=== PATIENT | female | born 1945 | race Caucasian/White ===

== ENCOUNTER 2016-10-02 17:30 | Observation (INO) ==
--- NOTE | 2016-10-02 18:01 | Emergency Department Note ---
Disposition Clinical Impression: Chest pain Qualifiers: Chest pain type: unspecified Qualified Code(s): R07.9 - Chest pain, unspecified Disposition: Admitted As Inpatient Condition: Undetermined Referrals: NO,PCP [Non-Partnered Physician] - Forms: ED Satisfaction Letter Time of Disposition: 18:54 Chest Pain HPI - General Chief Complaint: ED Chest Pain Stated Complaint: chest pain Time Seen by Provider: 10/02/16 17:40 Source: patient, family Mode of arrival: ambulatory Limitations: no limitations Vital Signs Reviewed: Yes Nursing Notes Reviewed: Yes - History of Present Illness HPI Narrative: 71-year-old female with history of SD 4 years ago with 2 stents placed arrives here to the emergency department complaining of intermittent chest pain that has been ongoing for the past 3 hours which is identical to her previous SD. The patient feels tired at this time and was diaphoretic as she says. The patient does have risk factors of smoking, previous SD, hypertension, hyperlipidemia. The patient states her pain is currently gone at this time. The patient denies any currently. She appears tired at this time without any acute complaints. Pt complaint: chest pain Duration: intermittent, now resolved Onset: during rest, during exertion Severity scale (1-10): 0 Quality: tightness Pain Radiation: back, neck, jaw/teeth Improves with: nothing Worsens with: nothing Associated symptoms: Reports: diaphoresis, dyspnea Treatments prior to arrival chest pain: none - Related Data On Oral Contraceptives: No Home Medications Medication Instructions Recorded Confirmed Albuterol Sulfate [Proair Hfa] 2 puff IH Q6H PRN 07/25/15 02/28/16 Clopidogrel [Plavix] 75 mg PO DAILY 07/25/15 02/28/16 Ezetimibe [Zetia] 10 mg PO DAILY 07/25/15 02/28/16 Fluticasone/Salmeterol [Advair 1 puff IH BID 07/25/15 02/28/16 250-50 Diskus] Levothyroxine Sodium [Tirosint] 88 mcg PO QAM 07/25/15 02/28/16 Metoprolol [Lopressor] 12.5 mg PO BID 07/25/15 02/28/16 Simvastatin [Zocor] 20 mg PO HS 07/25/15 02/28/16 Tolterodine LA (24 HR) [Detrol LA] 4 mg PO DAILY 07/25/15 02/28/16 Ferrous Sulfate 325 mg PO DAILY 10/22/15 02/28/16 Previous Rx's Medication Instructions Recorded levoFLOXacin [Levaquin] 500 mg PO DAILY #5 tablet 02/29/16 predniSONE [PredniSONE] 50 mg PO DAILY 5 Days 02/29/16 Allergies Allergy/AdvReac Type Severity Reaction Status Date / Time aspirin [ASA] Allergy Hives Verified 02/28/16 20:14 Iazytqf-Rfu-Dny Reductase Allergy Hives Verified 02/28/16 20:14 Inhibitor [Statins] All systems ED: reviewed and negative except as stated. Constitutional: Denies: fever, chills, weakness, weight change Eyes: Denies: eye pain, eye discharge, vision change ENT ED: Denies: ear pain, throat pain, dental pain, hearing loss, epistaxis, congestion, dysphagia Cardiovascular: Reports: chest pain, dyspnea on exertion. Denies: palpitations , edema, syncope Respiratory: Reports: dyspnea. Denies: cough, wheezes, hemoptysis, stridor Gastrointestinal: Denies: abdominal pain, nausea, vomiting, diarrhea, constipation, hematemesis, melena, hematochezia Genitourinary: Denies: dysuria, frequency, hematuria, discharge Musculoskeletal: Denies: back pain, neck pain, arthralgia, myalgia Integumentary: Denies: rash, abrasion, lesions Neurological: Denies: headache, weakness, numbness, paresthesias, confusion, abnormal gait, vertigo Chest Pain PMH - Past Medical History Medical history: Reports: COPD, coronary artery disease, hyperlipidemia, hypertension, migraine, myocardial infarction, thyroid disease Surgical history: Reports: angioplasty/stent Psychiatric history: Reports: no psych history Prior Cardiac Testing/Procedures: Stenting - Social History Smoking Status: Current every day smoker Alcohol use: Reports: none Drug use: Reports: none Physical Exam - General Limitations: no limitations General appearance: alert, in no apparent distress - Head Head exam: atraumatic, normocephalic, normal inspection - Eye Eye exam: Present: normal appearance, PERRL, EOMI - ENT ENT exam: normal exam, normal oropharynx, mucous membranes moist - Neck Neck exam: Present: normal inspection, full ROM, trachea midline - Chest Chest inspection: Present: normal inspection, symmetric chest wall rise - Respiratory Respiratory exam: Present: normal lung sounds bilaterally - Cardiovascular Cardiovascular exam: Present: regular rate, normal rhythm, normal heart sounds - Abdominal Exam Abdominal exam: Present: soft, Non-Tender. Absent: tenderness, distention, guarding, rebound, rigidity - Extremities Exam Extremities exam: Present: normal inspection, full ROM. Absent: tenderness, pedal edema - Neurological Exam Neurological exam: Present: alert, oriented X3 - Skin Skin exam: Present: warm, dry, intact, normal color Course Vital Signs Temperature 97.9 F 10/02/16 17:37 Pulse Rate 72 10/02/16 17:37 Respiratory Rate 18 10/02/16 17:37 Blood Pressure 162/71 10/02/16 17:37 O2 Sat by Pulse Oximetry 97 10/02/16 17:37 Temperature 97.9 F 10/02/16 17:37 Pulse Rate 67 10/02/16 18:29 Respiratory Rate 16 10/02/16 18:29 Blood Pressure 152/73 10/02/16 18:29 O2 Sat by Pulse Oximetry 95 10/02/16 18:29 Oxygen Delivery Oxygen Delivery Room Air Chest Pain - MDM Narrative Medical decision making narrative: I examined this patient and my medical decision-making was reviewed with the Resident Physician. I agree with the documented findings, disposition and treatment plan as described except to the extent set forth below. Patient seen and evaluated by Dr. Rose and myself, I agree with his evaluation and management plan, supervising care the patient's stay. Patient comes in today with chest pain intermittently but resolved she was worried his going up to her neck and chart he has [address] of this also alerted pain she has had in the past. No pain at this time. She is on Plavix cannot take aspirin or she has allergy to that. She did have Plavix earlier today. EKG cardiac workup and most likely admission. She is in agreement with this plan. Patient's workup here in the emergency department demonstrates no acute process. The patient does experience a large amount of chest pain. With the patient's symptoms, and extensive cardiac history with 2 stents included, we will admit the patient to hospital for ACS rule out. The patient's symptoms occurred just prior to arrival so the patient's troponin would not be elevated if this is associated with ACS. The patient's EKG damages no acute findings. Accepted by the hospitalist, Yoli Martinez. - Lab Data Lab results reviewed: Yes I reviewed the patient's lab results. Result diagrams: 10/02/16 18:18 10/02/16 18:18 Lab Results 10/02/16 10/02/16 10/02/16 Range/Units 18:18 18:18 18:18 WBC 8.6 (4.3-11.1) K/mcL RBC 3.80 L (3.82-4.97) M/mcL Hgb 12.8 (11.5-15.4) g/dL Hct 38.7 (35.3-44.9) % MCV 101.8 H (83.0-100.0) fL MCH 33.7 H (28.0-33.3) pg MCHC 33.1 (31.6-35.5) g/dL RDW 13.1 (11.5-14.5) % Plt Count 208 (140-400) K/mcL MPV 10.7 (9.4-12.4) fL Immature Gran % 1.4 (0-4) % Seg Neutrophils % 59.5 % Lymphocytes % 23.8 % Monocytes % 11.9 % Eosinophils % 2.9 % Basophils % 0.5 % Neutrophils # 5.1 (1.6-8.9) K/mcL Lymphocytes # 2.0 (0.6-4.6) K/mcL Monocytes # 1.0 (0.0-1.3) K/mcL Eosinophils # 0.3 (0.0-0.6) K/mcL Basophils # 0.0 (0.0-0.2) K/mcL Sodium 139 (136-145) mEq/L Potassium 4.0 (3.5-4.5) mEq/L Chloride 104 (98-109) mEq/L Carbon Dioxide 29 (19-29) mEq/L BUN 17 (7-20) mg/dL Creatinine 0.75 (0.57-1.11) mg/dL Est GFR ( Amer) > 60 (> 60) Est GFR (Non-Af Amer) > 60 (> 60) BUN/Creatinine Ratio 23 (6-26) Glucose 78 (70-99) mg/dL Calculated Osmolality 288 (280-300) Calcium 8.9 (8.6-10.8) mg/dL Troponin I 0.00 (0-0.03) ng/mL - Radiology Data Radiology results reviewed: Yes I reviewed the patient's radiology results. - EKG Data EKG attestation: Yes I reviewed and interpreted this EKG. EKG results narrative: Heart rate 72 bpm. SD interval 120 ms. QTC 394 ms. Normal axis. Normal sinus rhythm. No ST elevation or ST depression noted. EKG similar appearance to EKG from 02/28/2016. No acute changes noted. Heart Score - Score History: Highly Suspicious EKG: Normal Age: Greater than 65 Risk Factors: Equal/Greater than 3 risk factor or history of atherosclerotic disease Troponin: Less than normal limit HEART Score Total: 6
[2016-10-02 18:25] LABS: Basophils % 0.5 %; Eosinophils # 0.3 K/mcL (0.0-0.6); Eosinophils % 2.9 %; Hematocrit 38.7 % (35.3-44.9); Hemoglobin 12.8 g/dL (11.5-15.4); Immature Granulocytes % 1.4 % (0-4); Lymphocytes % 23.8 %; Mean Corpuscular HGB Conc 33.1 g/dL (31.6-35.5); Mean Corpuscular Hemoglobin 33.7 pg (28.0-33.3); Mean Corpuscular Volume 101.8 fL (83.0-100.0); Mean Platelet Volume 10.7 fL (9.4-12.4); Monocytes % 11.9 %; Neutrophils # 5.1 K/mcL (1.6-8.9); Platelet Count 208 K/mcL (140-400); Red Cell Distribution Width 13.1 % (11.5-14.5); Segmented Neutrophils % 59.5 %
[2016-10-02 18:40] LABS: BUN/Creatinine Ratio 23 (6-26); Blood Urea Nitrogen 17 mg/dL (7-20); Calcium 8.9 mg/dL (8.6-10.8); Carbon Dioxide 29 mEq/L (19-29); Chloride 104 mEq/L (98-109); Glucose 78 mg/dL (70-99); Osmolality,Calculated 288 (280-300); Sodium 139 mEq/L (136-145); eGFR For African Americans > 60 (> 60); eGFR For Non-African Americans > 60 (> 60)
[2016-10-02] MEDS ORDERED: Acetaminophen 325 MG TABLET PO PRN (22:29)
[2016-10-02] MEDS ORDERED: *HR* Morphine 2 MG/ML SYRINGE IVP PRN (22:29)
[2016-10-02] MEDS ORDERED: Naloxone 0.4 MG/ML INJ IVP PRN (22:29)
--- NOTE | 2016-10-02 22:51 | Internal Med History&Physical ---
Date of Encounter: 10/02/16 Time of Encounter: 22:48 Assessment and Plan (1) Tobacco abuse Current visit: Yes Status: Acute I have offered smoking cessation counseling. She is not ready to quit smoking. (2) Chest pain Current visit: Yes Status: Acute Atypical chest pain in a patient with multiple risk factors including hyperlipidemia and tobacco abuse and prior OH. We will place the patient in observation, trend troponin. Obtain stress test and echocardiogram in the morning. Qualifiers: Chest pain type: unspecified Qualified Code(s): R07.9 - Chest pain, unspecified (3) Essential hypertension Current visit: No Status: Chronic Continue oral antihypertensive medication regimen per her home meds. (4) CAD (coronary artery disease) Current visit: No Status: Chronic Continue aspirin and Plavix. Trend troponin. Continue with metoprolol. Qualifiers: Coronary Disease-Associated Artery/Lesion type: [place] artery [place] vs. transplanted heart: [place] heart Associated angina: without angina Qualified Code(s): I25.10 - Atherosclerotic heart disease of [place] coronary artery without angina pectoris (5) COPD (chronic obstructive pulmonary disease) Current visit: Yes Status: Acute Inhaled albuterol. No oxygen supplementation as needed as patient is above 92% on room air. Qualifiers: COPD type: emphysema Emphysema type: centrilobular Qualified Code(s): J43.2 - Centrilobular emphysema Internal Medicine - H&P: HPI Chief complaint: Chest pain Admitted From: Emergency Dept Plans for Post Hospital Care: Home History of present illness: Ms. Goldstein is a 71 year old female with with past medical history of hypertension and coronary artery disease status post OH and stent placement who presented to the hospital due to sudden onset left sided severe, dull chest pain that she experienced today. This was associated with nausea and generalized weakness, no vomiting and lasted for a few minutes. The episodes recurred several times throughout the day. She states it felt like her previous heart attack. Workup done in the emergency department was nonrevealing. A 10 point review of systems was negative. Family history was pertinent for myocardial infarction in patient's father at age 41. Social history the patient smokes a pack of cigarettes a day. Denies alcohol and drug use. Past Med Surg Social Fam HX - Past Medical History Medical history: COPD, coronary artery disease, hyperlipidemia, hypertension, myocardial infarction, thyroid disease Psychiatric history: no psych history - Past Surgical History Surgical History: angioplasty/stent - Social History Smoking Status: Current every day smoker Packs per day: 0.5-1 Smokeless Tobacco Status: No Alcohol use: none Drug use: none - Family History Father Living Status: Hx Family Cardiac Disorders: Yes (mi,) Hx Family Endocrine Disorder: Yes (dm) Internal Medicine - H&P: Meds Albuterol Sulfate [Proair Hfa] 2 puff IH Q6H PRN 07/25/15 [History] Clopidogrel [Plavix] 75 mg PO DAILY 07/25/15 [History] Ezetimibe [Zetia] 10 mg PO DAILY 07/25/15 [History] Fluticasone/Salmeterol [Advair 250-50 Diskus] 1 puff IH BID 07/25/15 [History] Metoprolol [Lopressor] 12.5 mg PO BID 07/25/15 [History] Simvastatin [Zocor] 20 mg PO HS 07/25/15 [History] Tolterodine LA (24 HR) [Detrol LA] 4 mg PO DAILY 07/25/15 [History] Ferrous Sulfate 325 mg PO DAILY 10/22/15 [History] Levothyroxine [Synthroid] 100 mcg PO 0630 10/02/16 [History] Allergies aspirin [ASA] Allergy (Verified 10/02/16 20:05) Hives Dpfwlau-Hwz-Qwj Reductase Inhibitor [Statins] Allergy (Verified 10/02/16 20:05) Hives All Systems PM: A 10-system review of systems was performed and is negative for pertinent findings except as documented above in the HPI. - Constitutional Vitals: Temp Pulse Resp BP Pulse Ox 98.3 F 62 15 128/69 95 10/02/16 19:51 10/02/16 19:51 10/02/16 19:51 10/02/16 19:51 10/02/16 19:51 - Respiratory Respiratory exam: Present: CTAB. Absent: accessory muscle use, rales, rhonchi, wheezes - Cardiovascular Cardiovascular exam: Present: RRR, +S1, +S2. Absent: diastolic murmur, gallop, rubs, systolic murmur - GI/Abdominal GI/Abdominal exam: Present: normal bowel sounds, soft, no peritoneal signs. Absent: distended, tenderness - Neurological Exam Neurological exam: Present: CN II-XII intact, oriented X3, no focal deficits. Absent: pronater drift, facial droop, speech deficit - Skin Skin exam: Present: dry, intact Internal Med - H&P Results - Labs CBC & Chem 7: 10/02/16 18:18 10/02/16 18:18 - EKG Data -: EKG Interpreted by Myself EKG shows normal: sinus rhythm (Nonspecific T-wave changes)
[2016-10-03 01:31] LABS: Basophils # 0.1 K/mcL (0.0-0.2); Basophils % 0.5 %; Eosinophils # 0.2 K/mcL (0.0-0.6); Eosinophils % 2.5 %; Hematocrit 37.5 % (35.3-44.9); Hemoglobin 12.5 g/dL (11.5-15.4); Immature Granulocytes % 1.1 % (0-4); Lymphocytes # 1.9 K/mcL (0.6-4.6); Lymphocytes % 20.8 %; Mean Corpuscular HGB Conc 33.3 g/dL (31.6-35.5); Mean Corpuscular Hemoglobin 33.6 pg (28.0-33.3); Mean Corpuscular Volume 100.8 fL (83.0-100.0); Mean Platelet Volume 10.3 fL (9.4-12.4); Monocytes # 1.1 K/mcL (0.0-1.3); Monocytes % 11.5 %; Neutrophils # 5.8 K/mcL (1.6-8.9); Platelet Count 209 K/mcL (140-400); Red Blood Count 3.72 M/mcL (3.82-4.97); Segmented Neutrophils % 63.6 %
[2016-10-03 01:48] LABS: BUN/Creatinine Ratio 23 (6-26); Blood Urea Nitrogen 17 mg/dL (7-20); Calcium 8.7 mg/dL (8.6-10.8); Carbon Dioxide 30 mEq/L (19-29); Chloride 104 mEq/L (98-109); Chol/HDL Ratio 2.7 (0-4.9); Cholesterol 164 mg/dL (< 200); Glucose 86 mg/dL (70-99); HDL Cholesterol 60 mg/dL (40-59); LDL Cholesterol,Calculated 87 mg/dL (0-99); Magnesium 1.8 mg/dL (1.6-2.6); Osmolality,Calculated 291 (280-300); Sodium 140 mEq/L (136-145); Triglycerides 86 mg/dL (< 150); eGFR For African Americans > 60 (> 60); eGFR For Non-African Americans > 60 (> 60)
[2016-10-03] MEDS ORDERED: Regadenoson 0.4 MG/5 ML SYRINGE IVP ONE (06:30)
[2016-10-03] MEDS ORDERED: ZETIA 10MG PO SCH (09:00)
[2016-10-03] MEDS ORDERED: Tolterodine LA (24 HR) 4 MG CAP.ER.24H PO SCH (09:00)
[2016-10-03] MEDS ORDERED: Budesonide/Formoterol 80/4.5 MDI IH SCH (10:00)
[2016-10-03 12:10] VITALS: BP 115/55
--- NOTE | 2016-10-03 12:59 | Nuclear Medicine Stress Report ---
Regadenoson Nuclear Stress Name: Tami Goldstein Date of Study: 10/03/2016 Date: 1945 Ht: 61.0 in Medical Record#: [id number] Age: 71 Wt: 128.0 lb Gender: Female Order #: [id number] Location: [facility] IP Room: [facility] Supervising Provider: Adonay Suazo CNP Reading Physician: Josef Evangelista MD, [facility] Ordering Physician: Nidhi Yousif CNP Primary Care Physician: Marc Varghese MD Stress Technologist: Saji Arias CRT Critical Care Registered Nurse: Prakash Lopes Indications: Chest Pain Impression: Gated LVEF > 70%. Perfusion imaging was negative for ischemia or infarct. History: Hypertension Hypercholesteremia Prior PCI Stress Test Summary: Stress Test Type: Pharmacologic Regadenoson 0.4mg/5ml given IV Baseline Information: Initial Heart Rate: 67 Blood Pressure: 126/50 Stress Information: Test Terminated Due to (primary): As per protocol Maximum Blood Pressure: 138/56 Maximum Heart Rate: 82 Percent Maximum Heart Rate Achieved: 55 Double Product: 11,316 Symptoms: No chest symptoms Nuclear Summary: SPECT myocardial perfusion imaging using Tc99m Sestamibi given intravenously was performed at rest and following cardiac stress testing. The resting images were obtained following initial dose of 10.8 mCi. Following stress an additional dose of 32.2 mCi was given at peak exercise or 30 seconds post regadenoson infusion. Findings: Stress Note * Resting ECG demonstrated sinus rhythm, non-specific ST-T wave abnormalities. * No baseline arrhythmias were noted. * Patient had no chest pain during stress. * No arrhythmias were noted during stress. * No significant ECG changes with regadenoson. Hemodynamic responses * Normal hemodynamic responses to pharmacologic stress. Study Quality * Study quality is average. Gated EF > 70% * Gated LVEF > 70%. Left Ventricle * The left ventricle is not dilated. * Normal Segmental Perfusion in rest. * Normal segmental perfusion in stress. * Mild inferior/inferolateral artifact is noted. TID * No evidence of transient ischemic dilatation. Updated by Josef Evangelista MD, [facility] on 10/03/2016 12:53:01 PM electronically signed on 10/03/2016 12:53:28 PM with status of Final
--- NOTE | 2016-10-03 15:11 | Discharge Summary ---
Date of Encounter: 10/03/16 Time of Encounter: 14:00 - Discharge Diagnosis (1) Chest pain Priority: Primary Status: Resolved Comments: Patient denied chest pain at time of discharge. Chest x-ray without acute findings. Echocardiogram revealing ejection fraction of 65-70% with moderate diastolic dysfunction. Patient euvolemic on examination and denied shortness of breath above her norm. Stress test negative. ACS ruled out. Qualifiers: Chest pain type: unspecified Qualified Code(s): R07.9 - Chest pain, unspecified (2) Essential hypertension Priority: Secondary Status: Chronic Comments: Controlled, follow-up outpatient (3) Hypothyroidism Priority: Secondary Status: Chronic Comments: Checked at the beginning of this month. TSH elevated however free T4 normal. Follow-up outpatient Qualifiers: Hypothyroidism type: acquired Qualified Code(s): E03.9 - Hypothyroidism, unspecified (4) CAD (coronary artery disease) Priority: Secondary Status: Chronic Qualifiers: Coronary Disease-Associated Artery/Lesion type: [place] artery [place] vs. transplanted heart: [place] heart Associated angina: without angina Qualified Code(s): I25.10 - Atherosclerotic heart disease of [place] coronary artery without angina pectoris (5) COPD (chronic obstructive pulmonary disease) Priority: Secondary Status: Chronic Comments: No acute exacerbation. On room air Qualifiers: COPD type: emphysema Emphysema type: centrilobular Qualified Code(s): J43.2 - Centrilobular emphysema (6) Tobacco abuse Priority: Secondary Status: Chronic Comments: Patient declined smoking cessation counseling - Discharge Medications Home Medications: Albuterol Sulfate [Proair Hfa] 2 puff IH Q6H PRN 07/25/15 [History] Clopidogrel [Plavix] 75 mg PO DAILY 07/25/15 [History] Ezetimibe [Zetia] 10 mg PO DAILY 07/25/15 [History] Fluticasone/Salmeterol [Advair 250-50 Diskus] 1 puff IH BID 07/25/15 [History] Metoprolol [Lopressor] 12.5 mg PO BID 07/25/15 [History] Simvastatin [Zocor] 20 mg PO HS 07/25/15 [History] Tolterodine LA (24 HR) [Detrol LA] 4 mg PO DAILY 07/25/15 [History] Ferrous Sulfate 325 mg PO DAILY 10/22/15 [History] Levothyroxine [Synthroid] 100 mcg PO 0630 10/02/16 [History] Allergies/Adverse Reactions: Allergies aspirin [ASA] Allergy (Verified 10/02/16 20:05) Hives Rilzwso-Csd-Kny Reductase Inhibitor [Statins] Allergy (Verified 10/02/16 20:05) Hives Procedures/tests Complete & Pending: Procedures Performed prior 72 hours Category Date Time Status NM vic perf SPECT multi [NM] Routine Exams 10/02/16 05:55 Taken EV echocardiogram Routine Y 10/03/16 22:32 Completed SP pharm nuclear stress Routine Y 10/02/16 22:31 Completed Date of admission: 10/02/16 19:06 Primary care physician: Marc Varghese MD Discharging clinician: Nidhi Yousif Anticipated date of discharge: 10/03/16 - Patient Status Disposition: Home, Self-Care Condition: Undetermined Functional capacity at discharge: independent ambulation Overall status at discharge: patient is back to baseline - Discharge Instructions Follow Up With: Marc Varghese MD [Primary Care Provider] - Additional Instructions: Follow-up with primary care provider within one to 2 weeks - Diet and Activity Activity: increase activity as tolerated Diet: low fat, low cholesterol, low salt diet Hospital course: Ms. Goldstein is a 71 year old female with past medical history of CAD status post stent, COPD, hyperlipidemia, hypertension, prior ND, hypothyroidism, tobacco abuse. Patient presented to the emergency department chief complaint of sudden onset of left-sided, severe, dull chest pain that started on the day of presentation. Associated symptoms include nausea and generalized weakness. No vomiting. Patient stating the episode lasted for a few minutes but then recurred several times throughout the day. Patient stating it felt similar to her prior heart attack. Workup in the emergency department unremarkable. Chest x-ray consistent with chronic COPD. She was admitted to the hospitalist service for further evaluation and management. Troponins negative 3. Echocardiogram revealing ejection fraction of 65-70%. Echo did also reveal moderate diastolic dysfunction however the patient was euvolemic on examination and denied shortness of breath. She is not on diuretics-no diagnosis of heart failure at this time. She had a nuclear stress test that was negative for ischemia or infarct. ACS ruled out. Patient denied chest pain or shortness of breath throughout this admission. Regarding risk factor modification, patient declined smoking cessation counseling. She is not on aspirin secondary to a documented allergy to it but she is on Plavix. She is also on a statin despite having a documented allergy to it and she is also on Zetia. She is on a beta josé luis. No changes indicated to the patient's medications. She was discharged home in stable condition with close outpatient follow-up recommended. ITS Impressions Chest X-Ray 10/02/16 17:40 IMPRESSION: 1. Stable appearance of the chest without acute cardiopulmonary process identified. 2. Findings suggesting COPD. D/ / See Mckoy MD / See Mckoy MD Interpreting Provider: See Mckoy MD Echocardiogram impressions: Normal LV systolic function, LVEF 65-70%. Mild concentric left ventricular hypertrophy. Moderate left ventricular diastolic dysfunction. Normal right ventricular size and function. No significant valvular dysfunction. Unable to estimate RVSP due to lack of TR jet. Regadenosen nuclear stress impression: Gated LVEF is greater than 70%. Perfusion imaging was negative for ischemia or infarct. - Time Spent with Patient Total time spent providing and/or coordinating discharge services: - Constitutional Vitals: Temp Pulse Resp BP Pulse Ox 98.3 F 56 16 115/55 94 10/03/16 12:07 10/03/16 12:07 10/03/16 12:07 10/03/16 12:07 10/03/16 12:07 General appearance: Present: A&O X 3, pleasant, no acute distress, answers questions appropriately - Head Head exam: Present: atraumatic, normocephalic - Eye Eye exam: Present: PERRL, conjuntiva pink, sclera anicteric Pupils: Present: PERRL - Neck Neck exam general surgery: Present: supple, trachea midline. Absent: lymphadenopathy - Respiratory Respiratory exam: Present: decreased breath sounds. Absent: accessory muscle use, rales, respiratory distress, rhonchi, wheezes - Cardiovascular Cardiovascular exam: Present: RRR, +S1, +S2. Absent: diastolic murmur, gallop, rubs, systolic murmur - GI/Abdominal GI/Abdominal exam: Present: normal bowel sounds, soft, no peritoneal signs. Absent: distended, tenderness - Extremities Exam Extremities exam: Present: warm, radial pulses palpable and symetrical. Absent : calf tenderness, cyanotic, pedal edema - Neurological Exam Neurological exam: Present: alert, CN II-XII intact, normal gait, oriented X3, no focal deficits, strengths equal and symetr throughout. Absent: pronater drift, facial droop, speech deficit - Skin Skin exam: Present: dry, intact, normal color, warm
--- NOTE | 2016-10-03 16:18 | Electrocardiograph Report ---
[place] [id number] Test Date: 2016-10-02 Pat Name: Tami Goldstein Department: 103 Room: 3B Gender: F Product Support Consultant: MAE : 1945 Requested By: Hilton Yarbrough Order Number: [id number] Reading MD: Stephanie Huitron Measurements Intervals [place] Rate: 72 P: 59 CO: 120 QRS: -11 QRSD: 81 T: 89 QT: 370 QTc: 394 Interpretive Statements SINUS RHYTHM POSSIBLE RIGHT VENTRICULAR CONDUCTION DELAY NONSPECIFIC T-WAVE ABNORMALITY Electronically Signed On 10-03-2016 16:16:51 EDT by Stephanie Huitron
== END 2016-10-03 16:03 | disposition home or self-care (01) ==
LOC: EMEROO 17:30 → 3BNU 17:30
PROVIDERS: ADMIT Internal Medicine; ATTEND Nurse Practitioner Family

== ENCOUNTER 2017-09-08 06:26 | Inpatient (IN) ==
[~2017-09-08 06:26] MED LIST: Vancomycin 1,000 MG, Sodium Chloride IRRigation 1,000 ML IR ONE
[2017-09-08] MEDS ORDERED: CeFAZolin Syr 2,000MG/20 ML 2,000 MG/20 ML SYRINGE IVPB ONE (06:42)
[2017-09-08] MEDS ORDERED: Albuterol 2.5 MG/3 ML NEBULIZER IH ONE (06:42)
[2017-09-08] MEDS ORDERED: *HR* Propofol 200 MG/20 ML VIAL IVP ONE (07:00)
[2017-09-08] MEDS ORDERED: *HR* FentaNYL (PF) 100 MCG/2 ML VIAL ONE (07:00)
[2017-09-08] MEDS ORDERED: Heparin 1,000 UNITS/500 mL 500 ML ONE (07:04)
[2017-09-08] MEDS: Ringers Solution, Lactated 1,000 ML IVC SCH ×2 (07:06→12:12)
[2017-09-08] MEDS ORDERED: *HR* Remifentanil 2 MG VIAL IVP ONE (07:09)
[2017-09-08] MEDS ORDERED: Lidocaine -MPF 2% 2 ML VIAL ONE (07:15)
[2017-09-08] MEDS ORDERED: *HR* Rocuronium Bromide 50 MG/5 ML VIAL ONE (07:15)
[2017-09-08] MEDS ORDERED: NiCARdipine 2.5 MG/10 ML Syringe IVPB ONE (07:17)
[2017-09-08] MEDS ORDERED: Lidocaine -MPF 4% 5 ML AMPUL ONE (07:23)
--- NOTE | 2017-09-08 07:32 | Anesthesia Evaluation PreOp ---
Date of Encounter: 09/08/17 Time of Encounter: 07:29 - Past History Planned Operation: R CEA Cardiac History: [place], HTN, Hyperlipidemia, Cardiac Stent (5 years ago) Pulmonary History: Smoker, COPD BAGGAGE CLERK History: CVA (recently causing visual issues;) Other Medical History: Thyroid Anesthesia History: Problems (hoarseness after last carotid surgery (also on the right)) Alcohol Use: none Drug use: none Medications and Allergies Albuterol Sulfate [Proair Hfa] 2 puff IH Q6H PRN 07/25/15 [History] Clopidogrel [Plavix] 75 mg PO DAILY 07/25/15 [History] Ezetimibe [Zetia] 10 mg PO DAILY 07/25/15 [History] Fluticasone/Salmeterol [Advair 250-50 Diskus] 1 puff IH BID 07/25/15 [History] Metoprolol [Lopressor] 12.5 mg PO BID 07/25/15 [History] Simvastatin [Zocor] 20 mg PO HS 07/25/15 [History] Tolterodine LA (24 HR) [Detrol LA] 4 mg PO DAILY 07/25/15 [History] Ferrous Sulfate 325 mg PO BID 10/22/15 [History] Levothyroxine [Synthroid] 100 mcg PO 0630 10/02/16 [History] Aspirin [Lo-Dose Aspirin EC] 81 mg PO DAILY 09/08/17 [History] Ipratropium/Albuterol Neb [Duoneb] 3 ml IH Q6HR PRN 09/08/17 [History] 3 Allergy/AdvReac Type Severity Reaction Status Date / Time No Known Allergies Allergy Verified 09/08/17 07:03 - Meds/Allergy Pre-op Review Medications Reviewed: Yes Allergies Reviewed: Yes Beta Blockers on Current Med List: Yes If Beta Blockers taken, Date/Time (Last Dose taken): 09-08-17 metoprolol 5:30 Anesthesia Results - Labs Laboratory Tests 09/03/17 09/03/17 09/03/17 09:53 09:53 09:57 WBC 4.7 Hgb 13.6 Hct 41.1 Plt Count 235 PT 11.1 INR 1.0 APTT 30.8 Sodium 139 Potassium 4.4 Chloride 106 Carbon Dioxide 29 BUN 18 Creatinine 0.84 Est GFR ( Amer) > 60 Est GFR (Non-Af Amer) > 60 BUN/Creatinine Ratio 21 Glucose 93 Calculated Osmolality 290 Calcium 9.4 - Imaging EKG: report reviewed, image reviewed (SINUS RHYTHM POSSIBLE RIGHT VENTRICULAR CONDUCTION DELAY NONSPECIFIC T-WAVE ABNORMALITY) Additional studies: TTE: EV/EV echocardiogram Impressions: LVEF 60-65%. Normal LV chamber size, wall thickness and function. Mild left ventricular diastolic dysfunction. Normal right ventricular structure and function. No evidence of pulmonary hypertension. No significant valvular dysfunction. Anesthesia Exam Last Vital Signs Temp 98.1 F 09/08/17 06:42 Pulse 68 09/08/17 06:42 Resp 18 09/08/17 06:43 BP 140/58 09/08/17 06:42 Pulse Ox 94 09/08/17 06:43 Weight: 59 kg NPO (# of Hours): > 8 hrs - HEENT Pupil (Motor): Pupils equal, EOMI Mallampati: III Teeth: Edentulous Denture Type: Upper: Complete Oral Opening: Greater than 3 - BAGGAGE CLERK LOC: Oriented - Cardiac Rhythm: Regular Murmur: None - Pulmonary Breath Sounds: bilateral Clear Respiratory Effort: Symmetrical Anesthesia Assess/Plan ASA Score: 3 Modified [place] Scale for Level of Consciousness: Cooperative, oriented, and tranquil Anesthetic Plan: General Monitoring Plan: Standard Monitors, A-Line Recovery Plan: PACU
[2017-09-08] MEDS ORDERED: Protamine Sulfate 50 MG/5 ML VIAL IVP ONE ×2 (07:59→12:31)
[2017-09-08] MEDS ORDERED: Lidocaine 1% 20 ML MDV ONE (07:59)
[2017-09-08] MEDS ORDERED: Bupivacaine-MPF 0.25% 10 ML VIAL ONE (07:59)
[2017-09-08] MEDS ORDERED: Heparin 1,000 UNITS/500 mL 1,000 ML ONE (07:59)
--- NOTE | 2017-09-08 08:04 | History & Physical Report ---
Date of Encounter: 09/08/17 Time of Encounter: 07:55 24 Hour HP Update - Instructions Instructions: If the History and Physical is less than 30 days old and was completed prior to A.M. admission and or procedure and has NOT been updated on calendar day of procedure please complete this update prior to performing procedure. - Update Patient reports changes in Medical Condition: No Changes in examination, assessment, or condition: No Changes in Medication: No Preop tests/diagnostics Reviewed: Yes Surgery Remains Indicated: Yes Consent for Planned Operative Procedure(s) Verified: Yes - Pre-Operative Checklist Preoperative Checklist Indicated: Yes Prophylactic Antibiotic Ordered: Yes (vancomycin due to MRSA risk) Home Medications Include Beta Chelsy: Yes Beta Chelsy Taken Today (Day of Surgery): Yes Beta Chelsy Taken Yesterday (Day Prior to Surgery): Yes Is VTE Prophylaxis Indicated?: Yes
[2017-09-08] MEDS ORDERED: Vancomycin 1,000 MG VIAL ONE (08:16)
[2017-09-08] MEDS ORDERED: Ondansetron 4 MG/2 ML VIAL IVP ONE (08:55)
[2017-09-08] MEDS ORDERED: *HR* Meperidine 25 MG/ML SYRINGE IVP PRN (08:55)
[2017-09-08] MEDS ORDERED: *HR* Promethazine 25 MG/ML VIAL IVP PRN (08:55)
[2017-09-08] MEDS ORDERED: MORPHINE SUL Oral CONC 10 MG/0.5 ML ORAL.SYG SL PRN (08:55)
[2017-09-08] MEDS ORDERED: *HR* OxyCODONE Immed Rel 5 MG TABLET PO PRN ×2 (08:55→14:06)
[2017-09-08] MEDS ORDERED: Dexamethasone 4 MG/ML VIAL ONE (09:22)
[2017-09-08] MEDS ORDERED: Ondansetron 4 MG/2 ML VIAL ONE (09:22)
[2017-09-08] MEDS ORDERED: *HR* Heparin 5,000 UNIT/ML VIAL ONE ×2 (10:14→10:47)
[2017-09-08] MEDS ORDERED: *HR* Phenylephrine 10 MG/ML VIAL ONE (10:47)
--- NOTE | 2017-09-08 11:00 | Anesthesia Procedures ---
Date of Encounter: 09/08/17 Time of Encounter: 08:20 Procedures: Anesthesia - Arterial Line Time out performed: Yes Sedation: Fentanyl (mcg): 50 (given in OR-see OR record) Supplemental Oxygen via Nasal Cannula (L/min): 10 (via mask) Local Anesthetic: Lidocaine 1% Amount of Anesthetic used (mls): 0.3 Size (Gauge): 20 Length (inches): 1 3/4 Technique Used: sterile prep, guide wire technique Post-Procedure: dry sterile dressing placed Patient tolerated procedure: well, no complications Complications: none Site: Radial R Vitals: see OR record Comments: placed by SAV Nuñez
[2017-09-08] MEDS ORDERED: Neostigmine Methylsulfate 3 MG/3 ML SYRINGE ONE (11:22)
--- NOTE | 2017-09-08 11:48 | Operative Note ---
Date of procedure: 09/08/17 Pre-op diagnosis: Symptomatic 60-79% right internal carotid artery stenosis Post-op diagnosis: same Procedure: Reoperative right carotid endarterectomy with Hemashield patch angioplasty. Complications: None Anesthesia: KAHLILA Surgeon: Son Pichardo Was there an licensed physical therapist assistant present: No Estimated blood loss (cc): 50 Specimen: Right carotid plaque Condition: stable Disposition: PACU Procedure in Detail: Indications: The patient is a 72-year-old female with a history of hypertension , hyperlipidemia, tobacco abuse and carotid stenosis. She previously underwent a right carotid endarterectomy. She is found have a recurrent 60-79% right internal carotid stenosis. A right carotid endarterectomy was recommended. Procedure: The patient was identified in the preoperative area. The risks, benefits, and alternatives of the procedure were discussed and all questions were answered. The patient was then taken to the operating room and placed in supine position on the operating table. After the induction of general endotracheal anesthesia, the patient was cleaned and draped in normal sterile fashion. A longitudinal incision was made anterior to the right sternocleidomastoid muscle her previous scar. Hemostasis was obtained via electrocautery. Through a process of blunt, sharp, and electrocautery dissection, the platysma was traversed and the jugular vein was identified. The jugular vein was retracted to expose the carotid bifurcation. Careful dissection was required as the vein was adherent to the artery particularly at the patch. The patient received 2000 units of heparin intravenously at this time. Proximal dissection of the common and external carotid arteries were performed circumferentially. Dissection of the internal carotid was performed circumferentially. Vessels loops were passed around the internal and external carotid and an umbilical tape was passed from the common carotid artery. The patient received additional 3000 units of heparin intravenously. Additional heparin was given throughout the case to maintain adequate anticoagulation. After waiting adequate time for the heparin to circulate, the vessels were occluded and a longitudinal arteriotomy was made into the common carotid artery and extended into the internal carotid beyond the plaque. The plaque was long, extended distally and was heavily calcified. Vigorous pulsatile retrograde flow was noted from the internal carotid artery upon release of the vessel loop. Due to the rapid pulsatile retrograde flow, no shunt was placed. A dental [place] was then used to perform a standard endarterectomy. Proximal and distal endpoints were inspected. No elevated flaps were noted. Additional heparin was given throughout the procedure to maintain adequate anticoagulation. A Hemashield patch was cut to fit the defect and sutured in place with running 6 -0 Prolene. Prior to completing the closure, each vessel was flushed and then reoccluded. Heparinized saline was infused into the lumen. The patch was completed. Flow was restored in the external carotid artery, followed the common carotid artery, lastly the internal carotid artery was opened. A low resistance arterialized signal was present within the internal carotid artery beyond the patch. Thrombin and Gelfoam were used to aid in hemostasis. Meticulous hemostasis was obtained throughout the wound with electrocautery. Platelet rich and platelet poor plasma were infused into the wounds. The sternocleidomastoid was reapproximated with interrupted 3-0 Vicryl. Platelet rich and platelet poor plasma were infused into the wound. A TLS drain was brought through a separate stab incision and sutured in place with 0 silk suture. The platysma was reapproximated with running 3-0 Vicryl. Local anesthetic was infused in the skin. A 3-0 Monocryl was used to reapproximate the skin. A sterile dressing was applied. The patient was extubated, taken to the recovery room in stable condition.
[2017-09-08] MEDS: *HR* Labetalol 20 MG/4 ML SYRINGE IVP PRN ×2 (13:00→13:28)
[2017-09-08] MEDS ORDERED: *HR* Labetalol 100 MG/20 ML MDV ONE (13:07)
--- NOTE | 2017-09-08 13:36 | Anesthesia Evaluation Post Op ---
Date of Encounter: 09/08/17 Time of Encounter: 13:35 - Vital Signs Vital Signs: Selected Entries 09/08/17 13:27 Temperature 98.6 F Pulse Rate 63 Respiratory Rate 15 Blood Pressure 153/65 O2 Sat by Pulse Oximetry 94 Oxygen Flow Rate (LPM) 2 - Lungs Lungs: Clear Ascult./Percussion - Airway Airway: Non-obstructed - Cardiovascular Regular Rate - Mental Status Mental Status: Alert & Oriented, Answers Appropriately - Nausea Vomiting Nausea Vomiting: Not Present - Hydration Hydration: NPO - Discharge PostOp Status: Discharge Patient to home
[2017-09-08] MEDS ORDERED: OXYCODONE Oral CONC 10 MG/0.5 ML ORAL.SYG SL PRN ×2 (14:06)
[2017-09-08] MEDS ORDERED: Naloxone 0.4 MG/ML INJ IVP PRN (14:06)
[2017-09-08] MEDS ORDERED: Ipratropium/Albuterol Neb 3 ML IH PRN (14:06)
[2017-09-08] MEDS ORDERED: Acetaminophen 325 MG TABLET PO PRN (14:06)
[2017-09-08] MEDS ORDERED: *HR* HYDROcodone/Acet 5/325 mg TABLET PO PRN (14:06)
[2017-09-08] MEDS ORDERED: *HR* Labetalol 20 MG/4 ML SYRINGE IVP PRN (14:06)
[2017-09-08] MEDS ORDERED: Ondansetron 4 MG/2 ML VIAL IVP PRN (14:06)
[2017-09-08] MEDS: (Ezetimibe [Zetia] 10 MG) PO SCH (14:32)
[2017-09-08] MEDS: Tolterodine LA (24 HR) 4 MG CAP.ER.24H PO SCH (14:32)
[2017-09-08] MEDS: *HR* Metoprolol 5 MG/5 ML VIAL IVP SCH ×2 (14:32→18:10)
[2017-09-08] MEDS: Aspirin Enteric Coated 81 MG Tablet PO SCH (14:32)
[2017-09-08 14:39] LABS: Basophils % 0.3 %; Eosinophils # 0.1 K/mcL (0.0-0.6); Eosinophils % 0.4 %; Hematocrit 38.3 % (35.3-44.9); Hemoglobin 12.7 g/dL (11.5-15.4); Immature Granulocytes % 0.5 % (0-4); Lymphocytes # 0.7 K/mcL (0.6-4.6); Lymphocytes % 5.7 %; Mean Corpuscular HGB Conc 33.2 g/dL (31.6-35.5); Mean Corpuscular Volume 99.5 fL (83.0-100.0); Mean Platelet Volume 10.3 fL (9.4-12.4); Monocytes # 0.2 K/mcL (0.0-1.3); Monocytes % 1.6 %; Neutrophils # 10.6 K/mcL (1.6-8.9); Platelet Count 196 K/mcL (140-400); Red Blood Count 3.85 M/mcL (3.82-4.97); Red Cell Distribution Width 12.7 % (11.5-14.5); Segmented Neutrophils % 91.5 %
[2017-09-08] MEDS ORDERED: Vancomycin 0 MG in D5% in Water 250 ML IVPB ONE (19:00)
[2017-09-08] MEDS ORDERED: Budesonide/Formoterol 80/4.5 MDI IH SCH (22:00)
[2017-09-09] MEDS: *HR* Metoprolol 5 MG/5 ML VIAL IVP SCH ×2 (00:02→05:42)
[2017-09-09] MEDS ORDERED: *HR* Heparin 5,000 UNIT/ML VIAL SQ SCH (06:00)
--- NOTE | 2017-09-09 07:04 | Discharge Summary ---
Date of Encounter: 09/09/17 Time of Encounter: 07:35 - Discharge Diagnosis (1) Carotid stenosis, bilateral Priority: Primary Status: Chronic Comments: The patient is postoperative day #1 for a right carotid endarterectomy. Her incision appears to be healing well. She has no hematoma. She has no focal neurologic deficits. She will be discharged today. (2) Essential hypertension Priority: Secondary Status: Chronic (3) CAD (coronary artery disease) Priority: Secondary Status: Chronic Qualifiers: Coronary Disease-Associated Artery/Lesion type: [place] artery [place] vs. transplanted heart: [place] heart Associated angina: without angina Qualified Code(s): I25.10 - Atherosclerotic heart disease of [place] coronary artery without angina pectoris (4) Tobacco abuse Priority: Secondary Status: Chronic (5) COPD (chronic obstructive pulmonary disease) Priority: Secondary Status: Chronic Qualifiers: COPD type: emphysema Emphysema type: centrilobular Qualified Code(s): J43.2 - Centrilobular emphysema - Hospital Course Hospital course: Ms. Goldstein is a 72 year old female history of carotid stenosis, hypertension, coronary artery disease, COPD and tobacco abuse. She was admitted on 2017 for a right carotid endarterectomy. On postoperative day #1 she was healing well without any neurologic deficits. She was discharged home in stable condition on postoperative day #1 without complications. Time spent discussing smoking cessation with patient: 3 to 10 minutes - Time Spent with Patient Total time spent providing and/or coordinating discharge services: - Discharge Medications Prescriptions: HYDROcodone/Acet 5/325 mg [[place] 5-325 mg] 1 tab PO Q6HR PRN 5 Days #20 tablet PRN Reason: Postoperative pain Home Medications: Albuterol Sulfate [Proair Hfa] 2 puff IH Q6H PRN 07/25/15 [History] Clopidogrel [Plavix] 75 mg PO DAILY 07/25/15 [History] Ezetimibe [Zetia] 10 mg PO DAILY 07/25/15 [History] Fluticasone/Salmeterol [Advair 250-50 Diskus] 1 puff IH BID 07/25/15 [History] Metoprolol [Lopressor] 12.5 mg PO BID 07/25/15 [History] Simvastatin [Zocor] 20 mg PO HS 07/25/15 [History] Tolterodine LA (24 HR) [Detrol LA] 4 mg PO DAILY 07/25/15 [History] Ferrous Sulfate 325 mg PO BID 10/22/15 [History] Levothyroxine [Synthroid] 100 mcg PO DAILY 10/02/16 [History] Aspirin [Lo-Dose Aspirin EC] 81 mg PO DAILY 09/08/17 [History] Ipratropium/Albuterol Neb [Duoneb] 3 ml IH Q6HR PRN 09/08/17 [History] Multivit-Min/Iron/Folic Acid/K [Adults Multivitamin Caplet] 1 each PO DAILY 05/24 [History] HYDROcodone/Acet 5/325 mg [[place] 5-325 mg] 1 tab PO Q6HR PRN 5 Days #20 tablet 09/09/17 [Rx] Allergies/Adverse Reactions: 3 Allergy/AdvReac Type Severity Reaction Status Date / Time No Known Allergies Allergy Verified 09/08/17 14:27 Date of admission: 09/08/17 13:46 Primary care physician: Marc Varghese MD Procedure(s) Performed: Right carotid endarterectomy. Discharging clinician: Son Pichardo Anticipated date of discharge: 09/09/17 Exam Vital Signs, Last 4 Hours Temp Pulse Resp BP Pulse Ox 09/09/17 03:28 98.3 F 63 18 123/44 94 General: Present: Conversant HEENT: Present: Pupils equal Neck: Present: Other (No hematoma) Lungs: Present: Normal Breath Sounds Neuro: Present: Alert and responsive, No focal deficits noted, Motor nerves grossly intact, Sensory nerves grossly intact Abdomen: Present: Soft Vascular: Present: Normal capillary refill, Clubbing, Cyanosis, Surgical incisions (clean, dry and intact without erythema or drainage) Skin: Present: No rashes noted on visualized skin - Patient Status Disposition: Home, Self-Care Condition: Good Functional capacity at discharge: independent ambulation Overall status at discharge: patient is back to baseline - Discharge Instructions Follow Up With: Marc Varghese MD [Primary Care Provider] - 09/15/17 9:15 am () Son Pichardo MD [Partnered Physician] - 10/20/17 2:20 pm Additional Instructions: May remove bandage and shower on 09/10/2017. Wash wound gently and pat to dry. No driving for [address] Pichardo at [phone] with questions or concerns. - Diet and Activity Activity: increase activity as tolerated Diet: low fat, low cholesterol - VTE Documentation of Mechanical Device: Intermittent pneumatic compression device
[2017-09-09 07:24] VITALS: BP 157/59
[2017-09-09] MEDS: Tolterodine LA (24 HR) 4 MG CAP.ER.24H PO SCH (08:06)
[2017-09-09] MEDS: Aspirin Enteric Coated 81 MG Tablet PO SCH (08:06)
[2017-09-09] MEDS: (Ezetimibe [Zetia] 10 MG) PO SCH (08:07)
== END 2017-09-09 08:55 | disposition home or self-care (01) | DRG 39 ==
LOC: SAMDAY 06:26 → 2NNU 13:46
PROVIDERS: ADMIT Surgery; ATTEND Surgery

== ENCOUNTER 2020-12-26 07:51 | Observation (INO) ==
[2020-12-26] MEDS ORDERED: Aspirin 81 MG TAB.CHEW PO ONE (08:01)
[2020-12-26] MEDS ORDERED: Isovue-370 500 ML BOTTLE IVP ONE (08:01)
[2020-12-26] MEDS ORDERED: 0.9 % Sodium Chloride 1,000 ML IVC SCH (08:15)
[2020-12-26 08:54] LABS: Basophils % 0.5 %; Eosinophils # 0.2 K/mcL (0.0-0.6); Eosinophils % 3.8 %; Hematocrit 39.8 % (35.3-44.9); Hemoglobin 12.9 g/dL (11.5-15.4); Immature Granulocytes % 0.5 % (0-4); Lymphocytes # 1.3 K/mcL (0.6-4.6); Lymphocytes % 22.7 %; Mean Corpuscular HGB Conc 32.4 g/dL (31.6-35.5); Mean Corpuscular Hemoglobin 31.8 pg (28.0-33.3); Mean Platelet Volume 10.3 fL (9.4-12.4); Monocytes # 0.6 K/mcL (0.0-1.3); Monocytes % 10.5 %; Neutrophils # 3.4 K/mcL (1.6-8.9); Platelet Count 243 K/mcL (140-400); Red Blood Count 4.06 M/mcL (3.82-4.97); Red Cell Distribution Width 12.8 % (11.5-14.5); White Blood Count 5.5 K/mcL (4.3-11.1)
[2020-12-26 08:58] LABS: Bilirubin,Urine Negative (Negative); Blood,Urine Negative (Negative); Clarity,Urine Clear (Clear); Color,Urine Light-Yellow (Yellow); Glucose,Urine (UA) Normal (Normal); Ketones,Urine Negative (Negative); Leukocyte Esterase,Urine Negative (Negative); Nitrite,Urine Negative (Negative); Protein,Urine Negative (Neg-Trace); Specific Gravity,Urine 1.015 (1.010-1.025); Urobilinogen,Urine Normal (Normal)
[2020-12-26 09:01] LABS: INR 1.1; Prothrombin Time 11.8 Seconds (9.4-12.1)
[2020-12-26 09:03] LABS: Activated Partial Thrombo Time 28.7 Seconds (26.0-36.0)
[2020-12-26 10:27] LABS: Thyroid Stimulating Hormone 0.085 mcIU/mL (0.340-5.600); Troponin I 0.03 ng/mL (< 0.04)
[2020-12-26] MEDS ORDERED: Mag Hydrox/Al Hydrox/Simeth 30 ML UDC PO PRN (10:49)
[2020-12-26] MEDS ORDERED: Melatonin 3 MG TABLET PO PRN (10:49)
[2020-12-26] MEDS ORDERED: Nitroglycerin 0.4 MG TAB.SUBL SL PRN (10:49)
[2020-12-26] MEDS ORDERED: Ondansetron 4 MG/2 ML VIAL IVP PRN (10:49)
[2020-12-26] MEDS ORDERED: Morphine Sulfate 2 MG/ML SYRINGE IVP PRN (10:49)
[2020-12-26] MEDS ORDERED: Naloxone 0.4 MG/ML INJ IVP PRN (10:49)
[2020-12-26 11:04] LABS: Alanine Aminotransferase 16 Units/L (7-52); Albumin 3.8 g/dL (3.5-5.7); Albumin/Globulin Ratio 1.3 (1.1-2.2); Alkaline Phosphatase 56 Units/L (34-104); Aspartate Amino Transferase 24 Units/L (13-39); BUN/Creatinine Ratio 21 (6-26); Bilirubin,Indirect 0.4 mg/dL (0.0-1.0); Bilirubin,Total 0.4 mg/dL (0.3-1.0); Blood Urea Nitrogen 19 mg/dL (8-23); Calcium 9.3 mg/dL (8.6-10.3); Carbon Dioxide 29 mEq/L (23-29); Chloride 104 mEq/L (98-107); Globulin 2.9 g/dL (2.4-3.5); Glucose 84 mg/dL (70-105); Lipase 22 Units/L (11-82); Osmolality,Calculated 289 (280-300); Potassium 4.6 mEq/L (3.5-5.1); Sodium 139 mEq/L (136-145); Total Protein 6.7 g/dL (6.4-8.9); eGFR For African Americans > 60 (> 60); eGFR For Non-African Americans > 60 (> 60)
[2020-12-26] MEDS: *HR* Heparin 5,000 UNIT/ML VIAL SQ SCH (16:40)
[2020-12-26] MEDS: Budesonide/Formoterol 80/4.5 1 PUFF INH IH SCH (20:40)
[2020-12-27] MEDS: *HR* Heparin 5,000 UNIT/ML VIAL SQ SCH (05:58)
[2020-12-27] MEDS ORDERED: Regadenoson 0.4 MG/5 ML SYRINGE IVP ONE (06:18)
[2020-12-27 06:42] VITALS: TEMP 98
[2020-12-27] MEDS ORDERED: Tolterodine LA (24 HR) 4 MG CAP.ER.24H PO SCH (09:00)
[2020-12-27] MEDS: Budesonide/Formoterol 80/4.5 1 PUFF INH IH SCH (09:47)
[2020-12-27 10:06] LABS: Chol/HDL Ratio 2.4 (0-4.9)
[2020-12-27 10:25] VITALS: BP 153/64; PULSE 62; O2SAT 92
[2020-12-27 10:26] LABS: Estimated Average Glucose 117 mg/dl; Hemoglobin A1C 5.7 %
== END 2020-12-27 13:10 | disposition home or self-care (01) ==
LOC: SUATTDRO → 3BNU 07:51 → EMEROOARM 07:51 → SUATTDRO 14:16 → 3BNU 16:10
PROVIDERS: ADMIT Family Medicine; ATTEND Internal Medicine